=== PATIENT | female | born 2000 | race Caucasian/White ===

== ENCOUNTER 2024-01-04 12:55 | Emergency (ER) | payer OTHER ==
[~2024-01-04] VITALS: Ht 157.5 cm; Wt 90.7 kg
[2024-01-04 12:57] VITALS: BP_SYST 121; PULSE 98; RESP 19; TEMP 98.2; O2SAT 97
[2024-01-04 13:52] LABS: BILIRUBIN,URINE NEGATIVE (NEGATIVE); BLOOD, URINE 1+ (NEGATIVE); CLARITY/URINE CLEAR (CLEAR); COLOR,URINE YELLOW (YELLOW); GLUCOSE,URINE NEGATIVE (NEGATIVE); KETONES,URINE TRACE (NEGATIVE); LEUKOCYTE ESTERASE ,URINE NEGATIVE (NEGATIVE); NITRITE, URINE NEGATIVE (NEGATIVE); PH,URINE 6.5 (5.0-8.0); PROTEIN URINE NEGATIVE (NEGATIVE)
[2024-01-04] MEDS: NACL 0.9% 1,000 ML IV ONE (14:00)
[2024-01-04 14:09] LABS: BACTERIA,URINE RARE /HPF (None Seen); WBC,URINE 0-3 /HPF (0-3)
[2024-01-04] MEDS ORDERED: LORazepam 2 MG/ML VIAL ONE ×2 (14:09)
[2024-01-04 14:10] LABS: MUCUS,URINE 2+ /LPF (None Seen); URINE AMPHETAMINE NEGATIVE (NEG <=500)
[2024-01-04 14:11] LABS: BARBITURATE, URINE POSITIVE (NEG <=200); BENZODIAZEPINE, URINE POSITIVE (NEG <=150); CANNABINOID, URINE NEGATIVE (NEG <=50); COCAINE, URINE NEGATIVE (NEG <=150); METHAMPHETAMINES SCREEN,URINE NEGATIVE (NEG <=500); OPIATE, URINE NEGATIVE (NEG <=100); PHENCYCLIDINE SCREEN,URINE NEGATIVE (NEG <=25); UR TRICYCLIC ANTIDEPRESSANTS NEGATIVE (NEG <=300); URINE METHADONE NEGATIVE (NEG <=200); URINE OXYCODONE SCREEN NEGATIVE (NEG <=100)
[2024-01-04 15:48] LABS: ANION GAP 11 (5-15); CALCIUM 8.6 mg/dL (8.4-11.0); CARBON DIOXIDE 24 mmol/L (23-29); CHLORIDE 105 mmol/L (98-107); CREATININE 0.82 mg/dL (0.55-1.30); GFR AFRICAN AMERICAN 113 mL/min (>90); GLUCOSE 106 mg/dL (74-106); POTASSIUM 4.1 mmol/L (3.5-5.1); SODIUM SERUM 140 mmol/L (136-145); UREA NITROGEN, BLOOD 13 mg/dL (8-21)
[2024-01-04 15:54] LABS: GFR NON AFRICAN-AMERICAN 94 mL/min (>90); PHENYTOIN (DILANTIN) 5.4 ug/mL (10.0-20.0); VALPROIC ACID 63 ug/mL (50-100)
[2024-01-04 16:53] LABS: BASOPHILS % (AUTO) 0.5 % (0.0-2.0); EOSINOPHILS # (AUTO) 0.2 K/uL (0.0-0.4); EOSINOPHILS % (AUTO) 2.7 % (0.0-4.0); HEMATOCRIT 34.4 % (36-48); HEMOGLOBIN 11.8 g/dL (12.0-16.0); LYMPHOCYTES # (AUTO) 1.4 K/uL (1.0-5.5); LYMPHOCYTES % (AUTO) 20.7 % (20.5-51.5); MEAN CORPUSCULAR HEMOGLOBIN 29 pg (27-31); MEAN CORPUSCULAR HGB CONC 34 % (32-36); MEAN CORPUSCULAR VOLUME 85 fL (79.0-98.0); MONOCYTES # (AUTO) 0.6 K/uL (0.0-1.0); MONOCYTES % (AUTO) 8.2 % (1.7-9.3); NEUTROPHILS # (AUTO) 4.6 K/uL (1.8-7.7); NEUTROPHILS % (AUTO) 67.9 % (40.0-70.0); PLATELET COUNT (AUTO) 179 K/uL (130-430); RED BLOOD CELL COUNT(AUTO) 4.03 MIL/uL (4.2-6.2); RED CELL DISTRIBUTION WIDTH 13.7 % (9.0-15.0); WHITE BLOOD COUNT (AUTO) 6.8 K/uL (4.8-10.8)
[2024-01-04] MEDS: PHENYTOIN 100 MG CAPSULE PO ONE (17:11)
[2024-01-04 18:00] VITALS: BP_SYST 121; PULSE 98; RESP 19; TEMP 98.2; O2SAT 97
== END 2024-01-04 18:01 | disposition home or self-care (01) ==
LOC: SED 12:55
DX: G40.909 Epilepsy, unspecified, not intractable, without status epilepticus (principal); R11.2 Nausea with vomiting, unspecified; R51.9 Headache, unspecified; Z88.6 Allergy status to analgesic agent; Z79.899 Other long term (current) drug therapy
CPT/HCPCS: 99284; 71045; 80307; 80048; 82140; 80185; 83880; 80164; 85025; 84484; 36415; 81025; 81000; 81001; 81015; J2060

== ENCOUNTER 2024-07-05 17:35 | Emergency (ER) | payer OTHER ==
[~2024-07-05] VITALS: Ht 157.5 cm; Wt 97.5 kg
[2024-07-05 17:41] VITALS: BP_SYST 126; PULSE 114; RESP 18; TEMP 98.3; O2SAT 98
[2024-07-05] MEDS ORDERED: HYDR-3917 PO (18:43)
[2024-07-05] MEDS: MORPHINE 4 MG INJ. 4 MG/ML VIAL IM ONE (18:50)
[2024-07-05 19:19] VITALS: BP_SYST 126; PULSE 114; RESP 18; TEMP 98.3; O2SAT 98
== END 2024-07-05 19:19 | disposition home or self-care (01) ==
LOC: SED 17:35
DX: R56.9 Unspecified convulsions (principal); R11.2 Nausea with vomiting, unspecified; R03.0 Elevated blood-pressure reading, without diagnosis of hypertension; M79.10 Myalgia, unspecified site; E03.9 Hypothyroidism, unspecified; Z88.5 Allergy status to narcotic agent; Z88.8 Allergy status to other drugs, medicaments and biological substances
CPT/HCPCS: 99283; 96372; J2270

== ENCOUNTER 2024-07-15 12:17 | Emergency (ER) | payer OTHER ==
[~2024-07-15] VITALS: Ht 157.5 cm; Wt 97.5 kg
[~2024-07-15 12:17] MED LIST: HYDR-3917 PO
[2024-07-15 12:34] VITALS: BP_SYST 128; PULSE 86; RESP 17; TEMP 97.5; O2SAT 98
[2024-07-15 15:17] LABS: BASOPHILS % (AUTO) 0.4 % (0.0-2.0); EOSINOPHILS # (AUTO) 0.2 K/uL (0.0-0.4); EOSINOPHILS % (AUTO) 2.1 % (0.0-4.0); HEMATOCRIT 36.7 % (36-48); HEMOGLOBIN 12.6 g/dL (12.0-16.0); MEAN CORPUSCULAR HEMOGLOBIN 29 pg (27-31); MEAN CORPUSCULAR HGB CONC 34 % (32-36); MEAN CORPUSCULAR VOLUME 84 fL (79.0-98.0); MONOCYTES # (AUTO) 0.6 K/uL (0.0-1.0); MONOCYTES % (AUTO) 6.1 % (1.7-9.3); NEUTROPHILS # (AUTO) 7.5 K/uL (1.8-7.7); NEUTROPHILS % (AUTO) 72.4 % (40.0-70.0); PLATELET COUNT (AUTO) 249 K/uL (130-430); RED BLOOD CELL COUNT(AUTO) 4.38 MIL/uL (4.2-6.2); RED CELL DISTRIBUTION WIDTH 14.4 % (9.0-15.0); WHITE BLOOD COUNT (AUTO) 10.3 K/uL (4.8-10.8)
[2024-07-15] MEDS: MECLIZINE HCL 25 MG TABLET (ANITVERT) PO ONE (15:18)
[2024-07-15] MEDS: METOCLOPRAMIDE HCL 10 MG/2 ML VIAL IVP ONE (15:23)
[2024-07-15 15:48] LABS: ALANINE AMINOTRANSFERASE 25 U/L (12-78); ALBUMIN 3.8 g/dL (3.4-4.8); ANION GAP 6 (5-15); ASPARTATE AMINOTRANSFERASE 22 U/L (10-37); BILIRUBIN,DIRECT 0.1 mg/dL (0.0-0.3); CALCIUM 8.9 mg/dL (8.4-11.0); CARBON DIOXIDE 29 mmol/L (23-29); CHLORIDE 104 mmol/L (98-107); CREATINE KINASE, TOTAL 130 U/L (26-192); CREATININE 0.84 mg/dL (0.55-1.30); GFR AFRICAN AMERICAN 110 mL/min (>90); GFR NON AFRICAN-AMERICAN 91 mL/min (>90); GLUCOSE 102 mg/dL (74-106); POTASSIUM 3.8 mmol/L (3.5-5.1); SODIUM SERUM 139 mmol/L (136-145); TOTAL BILIRUBIN 0.5 mg/dL (0.0-1.0); TOTAL PROTEIN, SERUM 7.7 g/dL (6.4-8.3); UREA NITROGEN, BLOOD 5 mg/dL (8-21)
[2024-07-15 15:55] LABS: PROTHROMBIN TIME 10.3 SECS (9.5-12.5)
[2024-07-15] MEDS ORDERED: MECL-261 PO (16:39)
[2024-07-15 17:04] VITALS: BP_SYST 128; PULSE 86; RESP 17; TEMP 97.5; O2SAT 98
== END 2024-07-15 17:00 | disposition home or self-care (01) ==
LOC: SED 12:17
DX: R42 Dizziness and giddiness (principal); R06.02 Shortness of breath; R11.0 Nausea; R51.9 Headache, unspecified; R07.89 Other chest pain; E07.9 Disorder of thyroid, unspecified; Z88.5 Allergy status to narcotic agent; Z88.8 Allergy status to other drugs, medicaments and biological substances; Z79.899 Other long term (current) drug therapy
CPT/HCPCS: 36415; 70450-TC; 71045; 80048; 80076; 81025; 82550; 84484; 85025; 85610; 85730; 93005; 99285; J2765; J8597